=== PATIENT | male | born 1990 | race Caucasian/White ===

== ENCOUNTER 2018-12-02 20:42 | Emergency (ER) | payer OTHER ==
[2018-12-02 20:53] VITALS: BMI 26.5
[2018-12-02] MEDS ORDERED: KETOROLAC TROMETHAMINE 60 MG/2 ML VIAL IM ONE (20:53)
--- NOTE | 2018-12-02 20:53 | PDOC ---
Rapid Medical Evaluation Medical Evaluation: Allergies Allergy/AdvReac Type Severity Reaction Status Date / Time Penicillins Allergy Verified 09/28/12 18:25 12/02/18 20:52 Patient c/o: left sided cp worse with movement and deep breathing x 4 days, Patient on brief exam: reproducible cp over left chest anteriorly, vss, ekg nsb at 57, lcta Patient ordered for: ekg, labs, and toradol Patient to proceed to the ED Discharge Disposition - Diagnosis Chest pain - Referrals - Patient Instructions - Post Discharge Activity
--- NOTE | 2018-12-02 21:41 | PDOC ---
History of Present Illness - General Chief Complaint: Chest Pain Stated Complaint: CHEST PAIN Time Seen by Provider: 12/02/18 20:52 History Source: Patient - History of Present Illness Initial Comments: 12/02/18 21:38 28 year old male with left sided chest pain x 2 days, nausea, pain is worse with movement and laying down. patient reports that pain is worse with breathing Past History - Past Medical History Allergies/Adverse Reactions: Allergies Allergy/AdvReac Type Severity Reaction Status Date / Time Penicillins Allergy Verified 12/02/18 22:03 - Suicide/Smoking/Psychosocial Hx Smoking Status: Yes Smoking History: Unknown if ever smoked Number of Cigarettes Smoked Daily: 2 Hx Alcohol Use: Yes Drug/Substance Use Hx: Yes Review of Systems - Review of Systems Able to Perform ROS?: Yes Is the patient limited Montenegrin proficient: No Constitutional: No: Symptoms Reported, See HPI, Chills, Diaphoresis, Fever, Loss of Appetite, Malaise, Night Sweats, Weakness, Weight Stable, Unintentional Wgt. Loss, Unexplained wgt Loss, Other Respiratory: No: Symptoms reported, See HPI, Cough, Orthopnea, Shortness of Breath, SOB with Exertion, SOB at Rest, Stridor, Wheezing, Productive cough, Hemoptysis, Other Cardiac (ROS): Yes: Chest Pain. No: Symptoms Reported, See HPI, Edema, Irregular Heart Rate, Lightheadedness, Palpitations, Syncope, Chest Tightness, Other ABD/GI: No: Symptoms Reported, See HPI, Abdominal Distended, Abd. Pain w/ defecation, Blood Streaked Bowels, Constipated, Diarrhea, Difficulty Swallowing , Nausea, Poor Appetite, Poor Fluid Intake, Rectal Bleeding, Vomiting, Indigestion, Abdominal cramping, Tarry Stools, Other *Physical Exam - Vital Signs Last Vital Signs Temp Pulse Resp BP Pulse Ox 98.7 F 65 20 118/75 98 12/02/18 20:50 12/02/18 20:50 12/02/18 20:50 12/02/18 20:50 12/02/18 20:50 - Physical Exam General Appearance: Yes: Appropriately Dressed Respiratory/Chest: positive: Chest Tender (left sided chest tenderness on palpation), Lungs Clear, Normal Breath Sounds Cardiovascular: positive: Regular Rhythm, Regular Rate Musculoskeletal: positive: Normal Inspection Extremity: positive: Normal Capillary Refill, Normal Inspection, Normal Range of Motion Integumentary: positive: Normal Color, Dry, Warm Neurologic: positive: Fully Oriented, Alert, Normal Mood/Affect ED Treatment Course - RADIOLOGY Radiology Studies Ordered: Category Date Time Status CHEST PA & LAT [RAD] Stat Radiology 12/02/18 22:00 Taken - Medications Given in the ED: ED Medications Discontinued Medications Generic Name Dose Route Start Last Admin Trade Name Guerline PRN Reason Stop Dose Admin Ketorolac Tromethamine 60 mg 12/02/18 20:53 12/02/18 21:50 Toradol Injection - IM 12/02/18 20:54 60 mg ONCE ONE Administration Medical Decision Making - Medical Decision Making 12/02/18 22:36 A: costochondritis P: toradol EKG : 57bpm chest xray *DC/Admit/Observation/Transfer Diagnosis at time of Disposition: Costochondral chest pain - Discharge Dispostion Disposition: HOME - Referrals Referrals: Nayana Lopez [Primary Care Provider] - - Patient Instructions Printed Discharge Instructions: DI for Chest Pain Additional Instructions: take ibuprofen every 6 hours as needed for pain follow up with your doctor as soon as possible. - Post Discharge Activity Forms/Work/School Notes: Back to Work
[2018-12-02] MEDS ORDERED: KETOROLAC TROMETHAMINE 60 MG/2 ML VIAL ONE (21:57)
--- NOTE | 2018-12-02 23:32 | PDOC ---
*Physical Exam - Vital Signs Last Vital Signs Temp Pulse Resp BP Pulse Ox 98 F 55 L 18 114/64 98 12/02/18 21:30 12/02/18 21:30 12/02/18 21:30 12/02/18 21:30 12/02/18 21:30 ED Treatment Course - Medications Given in the ED: ED Medications Discontinued Medications Generic Name Dose Route Start Last Admin Trade Name Freq PRN Reason Stop Dose Admin Ketorolac Tromethamine 60 mg 12/02/18 20:53 12/02/18 21:50 Toradol Injection - IM 12/02/18 20:54 60 mg ONCE ONE Administration Medical Decision Making - Medical Decision Making 12/02/18 23:31 Patient seen by the advanced practice provider under my direct supervision. Ancillary testing reviewed as necessary. I agree with plan as outlined by the advanced practice provider. *DC/Admit/Observation/Transfer Diagnosis at time of Disposition: Costochondral chest pain - Discharge Dispostion Disposition: HOME - Referrals Referrals: Nayana Lopez [Primary Care Provider] - - Patient Instructions Printed Discharge Instructions: DI for Chest Pain Additional Instructions: take ibuprofen every 6 hours as needed for pain follow up with your doctor as soon as possible. - Post Discharge Activity Forms/Work/School Notes: Back to Work
[2018-12-02 23:34] VITALS: BP 116/84; PULSE 82; TEMP 96.9
--- NOTE | 2018-12-03 08:05 | EKG ---
Test Reason : Blood Pressure : / mmHG Vent. Rate : 057 BPM Atrial Rate : 057 BPM P-R Int : 160 ms QRS Dur : 086 ms QT Int : 418 ms P-R-T Axes : 059 032 044 degrees QTc Int : 406 ms SINUS BRADYCARDIA OTHERWISE NORMAL ECG NO PREVIOUS ECGS AVAILABLE Confirmed by ARNAV HURST, OWEN ([id number]) on 12/03/2018 8:04:56 AM Referred By: Confirmed By:OWEN JOSÉ MD
== END 2018-12-02 23:34 | disposition home or self-care (01) ==
LOC: JER 20:42
PROC: 3E0233Z Introduction of Anti-inflammatory into Muscle, Percutaneous Approach (ICD-10-PCS; principal; 2018-12-02)
DX: M94.0 Chondrocostal junction syndrome [Tietze] (principal)
CPT/HCPCS: 71046-TC-FY; 93005; 93010; 96372; 99282-25

== ENCOUNTER 2020-08-10 23:05 | Emergency (ER) | payer OTHER ==
[2020-08-10 23:16] VITALS: BP 126/85; PULSE 71; TEMP 98.3; BMI 27.4
[2020-08-10] MEDS ORDERED: ONDANSETRON 4 MG/2 ML VIAL IVPUSH ONE (23:37)
[2020-08-10] MEDS ORDERED: ACETAMINOPHEN 1000 MG/100 ML VIAL (NON FORMULARY) IVPB ONE (23:37)
[2020-08-10] MEDS ORDERED: SODIUM CHLORIDE 1,000 ML IV SCH (23:45)
[2020-08-11] MEDS ORDERED: ONDANSETRON 4 MG/2 ML VIAL ONE (00:15)
[2020-08-11] MEDS ORDERED: ACETAMINOPHEN INJECTION 100 ML IVPB ONE (00:15)
[2020-08-11 00:52] LABS: BASO % 0.3 % (0-2.0); EOS % 0.3 % (0-4.5); HEMATOCRIT 42.7 % (35.4-49); HEMOGLOBIN 13.8 GM/dL (11.7-16.9); LYMPH % 8.5 % (8-40); MCH 27.8 pg (25.7-33.7); MCHC 32.4 g/dl (32.0-35.9); MONO % 5.7 % (3.8-10.2); NEUT % 85.2 % (42.8-82.8); PLATELET COUNT 259 K/MM3 (134-434); RBC 4.96 M/mm3 (4.00-5.60); RDW 14.2 % (11.9-15.9); WHITE BLOOD COUNT 13.4 K/mm3 (4.0-10.0)
[2020-08-11 00:58] LABS: POTASSIUM 4.3 mmol/L (3.5-5.1)
[2020-08-11 01:00] LABS: CALCIUM 9.1 mg/dL (8.5-10.1)
[2020-08-11 01:01] LABS: ALBUMIN 4.2 g/dl (3.4-5.0); BLOOD UREA NITROGEN 15.3 mg/dL (7-18)
[2020-08-11 01:04] LABS: CREATININE 0.9 mg/dL (0.55-1.3)
[2020-08-11 01:05] LABS: BILIRUBIN,TOTAL 0.4 mg/dL (0.2-1)
[2020-08-11 01:06] LABS: TOT PROT 7.3 g/dl (6.4-8.2)
[2020-08-11] MEDS ORDERED: FAMOTIDINE 20 MG/50 ML IVPB 20 MG/50 ML MG IVPB ONE ×2 (01:07→01:17)
[2020-08-11] MEDS ORDERED: MAG HYDROX/AL HYDROX/SIMETH 30 ML UNIT-DOSE CUP PO ONE (01:07)
[2020-08-11 01:08] LABS: INR 0.95 (0.83-1.09); PROTHROMBIN TIME (PATIENT) 11.7 SEC (9.7-13.0)
[2020-08-11 01:11] LABS: ACTIVATED PTT 29.1 SECONDS (25.2-36.5)
[2020-08-11] MEDS ORDERED: MAG HYDROX/AL HYDROX/SIMETH 30 ML UNIT-DOSE CUP ONE (01:16)
== END 2020-08-11 03:06 | disposition home or self-care (01) ==
LOC: JER 23:05
PROC: 3E033NZ Introduction of Analgesics, Hypnotics, Sedatives into Peripheral Vein, Percutaneous Approach (ICD-10-PCS; principal; 2020-08-10)
PROC: 3E033GC Introduction of Other Therapeutic Substance into Peripheral Vein, Percutaneous Approach (ICD-10-PCS; 2020-08-10)
DX: R11.10 Vomiting, unspecified (principal); K92.0 Hematemesis
CPT/HCPCS: 36415; 71046-TC-FY; 74019-TC-FY; 80053; 82272; 83690; 85025; 85610; 85730; 93005; 93010; 99285-25; J0131

== ENCOUNTER 2020-09-10 08:33 | Emergency (ER) | payer OTHER ==
[2020-09-10 09:05] VITALS: BMI 28.3
[2020-09-10] MEDS ORDERED: ONDANSETRON 4 MG/2 ML VIAL IVPUSH ONE (09:05)
[2020-09-10] MEDS ORDERED: KETOROLAC TROMETHAMINE 30 MG/1 ML VIAL IVPUSH ONE (09:05)
[2020-09-10] MEDS ORDERED: FAMOTIDINE 20 MG/50 ML IVPB 20 MG/50 ML MG IVPB ONE ×2 (09:05→09:10)
[2020-09-10] MEDS ORDERED: KETOROLAC TROMETHAMINE 30 MG/1 ML VIAL ONE (09:10)
[2020-09-10] MEDS ORDERED: ONDANSETRON 4 MG/2 ML VIAL ONE (09:10)
[2020-09-10] MEDS ORDERED: LACTATED RINGERS SOLUTION 1000 ML INFUS.BAG IV ONE (09:15)
[2020-09-10 09:41] LABS: BASO % 0.1 % (0-2.0); EOS % 0.2 % (0-4.5); HEMATOCRIT 46.9 % (35.4-49); HEMOGLOBIN 15.4 GM/dL (11.7-16.9); LYMPH % 2.4 % (8-40); MCH 28.1 pg (25.7-33.7); MCHC 32.8 g/dl (32.0-35.9); MEAN CELL VOLUME 85.7 fl (80-96); MEAN PLT VOLUME 9.3 fl (7.5-11.1); MONO % 4.7 % (3.8-10.2); NEUT % 92.6 % (42.8-82.8); PLATELET COUNT 230 K/MM3 (134-434); RBC 5.47 M/mm3 (4.00-5.60); RDW 13.7 % (11.9-15.9); WHITE BLOOD COUNT 16.7 K/mm3 (4.0-10.0)
[2020-09-10 09:58] LABS: POTASSIUM 4.1 mmol/L (3.5-5.1)
[2020-09-10 09:59] LABS: CALCIUM 9.3 mg/dL (8.5-10.1)
[2020-09-10 10:00] LABS: ALBUMIN 3.9 g/dl (3.4-5.0); BLOOD UREA NITROGEN 15.6 mg/dL (7-18)
[2020-09-10 10:04] LABS: BILIRUBIN,TOTAL 0.7 mg/dL (0.2-1); TOT PROT 7.5 g/dl (6.4-8.2)
[2020-09-10 10:14] LABS: EPI CELLS 4 /uL (0-25.1); HYALINE CASTS 1 /uL (0-3.1); URINE APPEARANCE CLEAR; URINE BACTERIA 270 /uL (0-1359); URINE BILIRUBIN NEGATIVE (NEGATIVE); URINE COLOR YELLOW; URINE GLUCOSE (UA) NEGATIVE (NEGATIVE); URINE KETONE 3+ (NEGATIVE); URINE LEUK ESTERASE NEGATIVE (NEGATIVE); URINE NITRITE NEGATIVE (NEGATIVE); URINE PROTEIN TRACE (NEGATIVE); URINE RBC 7 /uL (0-23.9); URINE UROBILINOGEN 0.2 mg/dL (0.2-1.0); URINE WBC 9 /uL (0-25.8)
[2020-09-10] MEDS ORDERED: MAG HYDROX/AL HYDROX/SIMETH -MYLANTA- ORAL SUSPENSION PO ONE (11:41)
[2020-09-10] MEDS ORDERED: LIDOCAINE VISCOUS 2% ORAL/TOP 20 ML UNIT-DOSE CUP MM ONE (11:41)
[2020-09-10] MEDS ORDERED: LIDOCAINE VISCOUS 2% ORAL/TOP 20 ML UNIT-DOSE CUP ONE (11:43)
[2020-09-10] MEDS ORDERED: MAG HYDROX/AL HYDROX/SIMETH 30 ML UNIT-DOSE CUP ONE (11:44)
[2020-09-10] MEDS ORDERED: metroNIDAZOLE 250 MG TABLET PO ONE (11:50)
[2020-09-10] MEDS ORDERED: metroNIDAZOLE 250 MG TABLET ONE (11:54)
[2020-09-10 12:00] VITALS: BP 132/95; PULSE 89; TEMP 98
[2020-09-10 13:03] LABS: ANISOCYTOSIS 0; MACROCYTOSIS 0; PLATELET ESTIMATE NORMAL
== END 2020-09-10 12:34 | disposition home or self-care (01) ==
LOC: JER 08:33
PROC: 3E033GC Introduction of Other Therapeutic Substance into Peripheral Vein, Percutaneous Approach (ICD-10-PCS; principal; 2020-09-10)
PROC: 3E0333Z Introduction of Anti-inflammatory into Peripheral Vein, Percutaneous Approach (ICD-10-PCS; 2020-09-10)
PROC: 3E033GC Introduction of Other Therapeutic Substance into Peripheral Vein, Percutaneous Approach (ICD-10-PCS; 2020-09-10)
DX: K57.92 Diverticulitis of intestine, part unspecified, without perforation or abscess without bleeding (principal)
CPT/HCPCS: 36415; 74176-TC; 76870-TC; 80053; 81003; 82272; 85025; 99285-25; C9803; U0003; U0005

== ENCOUNTER 2022-06-09 10:19 | Emergency (ER) | payer OTHER ==
[2022-06-09 10:22] VITALS: RESP 18; BMI 28.3
[2022-06-09 11:41] LABS: EPI CELLS 2 /uL (0-25.1); HYALINE CASTS 0 /uL (0-3.1); PH,URINE 7.5 (5.0-8.0); URINE APPEARANCE CLEAR; URINE BACTERIA 0 /uL (0-1359); URINE BILIRUBIN NEGATIVE (NEGATIVE); URINE COLOR YELLOW; URINE GLUCOSE (UA) NEGATIVE (NEGATIVE); URINE KETONE NEGATIVE (NEGATIVE); URINE LEUK ESTERASE TRACE (NEGATIVE); URINE NITRITE NEGATIVE (NEGATIVE); URINE PROTEIN 1+ (NEGATIVE); URINE RBC 1429 /uL (0-23.9); URINE WBC 19 /uL (0-25.8)
[2022-06-09 12:30] LABS: BASO % 0.2 % (0-2.0); EOS % 0.8 % (0-4.5); HEMATOCRIT 42.5 % (35.4-49); HEMOGLOBIN 13.5 GM/dL (11.7-16.9); LYMPH % 6.6 % (8-40); MCH 27.2 pg (25.7-33.7); MCHC 31.7 g/dl (32.0-35.9); MEAN CELL VOLUME 85.8 fl (80-96); MEAN PLT VOLUME 8.3 fl (7.5-11.1); MONO % 5.2 % (3.8-10.2); NEUT % 87.2 % (42.8-82.8); PLATELET COUNT 250 10^3/uL (134-434); RBC 4.95 M/mm3 (4.00-5.60); RDW 14.3 % (11.9-15.9); WHITE BLOOD COUNT 15.4 K/mm3 (4.0-10.0)
[2022-06-09 12:56] LABS: ALBUMIN 3.9 g/dl (3.4-5.0); BLOOD UREA NITROGEN 15.3 mg/dL (7-18); CALCIUM 9.1 mg/dL (8.5-10.1)
[2022-06-09 13:00] LABS: CREATININE 0.9 mg/dL (0.55-1.3)
[2022-06-09 13:01] LABS: BILIRUBIN,TOTAL 0.5 mg/dL (0.2-1); TOT PROT 7.1 g/dl (6.4-8.2)
[2022-06-09 16:02] VITALS: BP 105/68; PULSE 89; TEMP 98.1
== END 2022-06-09 15:32 | disposition home or self-care (01) ==
LOC: JER 10:19
DX: R31.9 Hematuria, unspecified (principal)
CPT/HCPCS: 36415; 74176-TC; 76775-TC; 76856-TC; 80053; 81003; 85025; 87086; 99285-25